=== PATIENT | male | born 1970 | race Caucasian/White ===

== ENCOUNTER 2017-05-01 08:20 | Emergency (ER) | payer SELFPAY ==
[~2017-05-01] VITALS: Ht 170.2 cm; Wt 70.0 kg
[2017-05-01] MEDS ORDERED: CLONIDINE0.1 MG PO (08:28)
[2017-05-01 11:36] LABS: URINE BILIRUBIN - DIPSTICK NEGATIVE (NEGATIVE); URINE BLOOD DIPSTICK NEGATIVE (NEGATIVE); URINE COLOR YELLOW; URINE GLUCOSE - DIPSTICK NEGATIVE (NEGATIVE); URINE KETONE NEGATIVE (NEGATIVE); URINE LEUK ESTERASE NEGATIVE (NEGATIVE); URINE NITRITE - DIPSTICK NEGATIVE (Negative); URINE PROTEIN - DIPSTICK NEGATIVE (NEG-TRACE); URINE SPECIFIC GRAVITY 1.015; URINE UROBILINOGEN - DIPSTICK 0.2 E.U./dL (0.2)
[2017-05-01 11:37] LABS: URINE CLARITY CLEAR
[2017-05-01 12:13] VITALS: BP 174/88
== END 2017-05-01 12:13 | disposition home or self-care (01) | DRG 730 ==
LOC: ED 08:20
PROVIDERS: Emergency Medicine
DX: N50.82 Scrotal pain (principal); F17.200 Nicotine dependence, unspecified, uncomplicated; I10 Essential (primary) hypertension